=== PATIENT | female | born 1980 ===

== ENCOUNTER 2021-07-14 10:19 | Emergency (ER) | payer SELFPAY ==
[2021-07-14 11:40] LABS: ALBUMIN 4.1 g/dL (3.4-5.0); BILIRUBIN - TOTAL 0.4 mg/dL (0.2-1.0); BUN/CREAT RATIO (CALC) 16.4 RATIO; CREATININE 0.55 mg/dL (0.51-0.95); GLOBULIN (CALCULATION) 3.1 g/dL; POTASSIUM 4.4 mmol/L (3.5-5.1); TOTAL PROTEIN 7.2 g/dL (6.4-8.2)
[2021-07-14 11:54] LABS: BASOPHIL 0.6 % (0-2); EOSINOPHIL 2.9 % (0-5); HCT 39.5 % (37.0-47.0); HGB 12.7 g/dl (12.5-16.0); LYMPHOCYTE 19.5 % (15-48); MCH 29.9 pg (25.0-31.0); MCHC 32.2 g/dL (32.0-36.0); MCV 92.9 fL (78.0-100.0); MONOCYTE 8.8 % (0-12); MPV 10.6 fL (6.0-9.5); NEUTROPHIL 67.8 % (41-80); NRBC 0; PLT 246 K/uL (150-400); RBC 4.25 M/uL (4.20-5.40); WBC 8.6 K/uL (4.0-10.5)
[2021-07-14] MEDS ORDERED: NORCO 5-325 TA1 EACH PO (14:19)
[2021-07-14] MEDS ORDERED: NAPROXEN500 MG PO (14:19)
[2021-07-14] MEDS ORDERED: CLINDAMYCIN HC300 MG PO (14:19)
== END 2021-07-14 14:57 | disposition home or self-care (01) ==
LOC: FER 10:19
PROVIDERS: Emergency Medicine
DX: K04.7 Periapical abscess without sinus (principal); K02.9 Dental caries, unspecified; L03.211 Cellulitis of face; Z88.1 Allergy status to other antibiotic agents
CPT/HCPCS: 36415; 70487; 80053; 82150; 85025; J1170; J1885; J2405; J2543; J2550; Q9967